=== PATIENT | female | born 1950 | race Two or more races ===

== ENCOUNTER 2018-05-19 11:42 | Outpatient (CLI) | payer OTHER ==
[~2018-05-19 11:42] MED LIST: CONEX TABLET1 EACH PO; IOPHEN DM-100 MG/5 M PO; TESSALON PERLE100 M1 PO
== END 2018-05-19 17:00 | disposition home or self-care (01) ==
LOC: SONOGRAMA 11:42 → RAD 11:42
DX: M25.562 Pain in left knee (principal)

== ENCOUNTER 2018-05-20 07:23 | Outpatient (CLI) | payer OTHER | END 2018-05-20 07:32 | disposition home or self-care (01) | LOC: SONOGRAMA 07:23 | DX: M25.562 Pain in left knee (principal) ==

== ENCOUNTER → 2018-06-02 | Outpatient (CLI) | payer OTHER | END | disposition home or self-care (01) | LOC: MRI 07:15 | DX: M25.462 Effusion, left knee (principal); M25.562 Pain in left knee | CPT/HCPCS: 73721 ==

== ENCOUNTER 2018-06-09 15:16 | Outpatient (CLI) | payer OTHER | END 2018-06-09 16:24 | disposition home or self-care (01) | LOC: LAB 15:16 | DX: E55.9 Vitamin D deficiency, unspecified (principal); M85.89 Other specified disorders of bone density and structure, multiple sites ==

== ENCOUNTER → 2018-06-22 | Outpatient (CLI) | payer OTHER | END | disposition home or self-care (01) | LOC: NUCLEAR 07:20 | DX: M81.0 Age-related osteoporosis without current pathological fracture (principal) ==

== ENCOUNTER 2018-10-27 08:38 | Outpatient (CLI) | payer OTHER | END 2018-10-27 15:00 | disposition home or self-care (01) | LOC: LAB 08:38 | DX: E88.89 Other specified metabolic disorders (principal); M81.8 Other osteoporosis without current pathological fracture; E56.1 Deficiency of vitamin K; E21.3 Hyperparathyroidism, unspecified ==

== ENCOUNTER 2018-10-27 08:43 | Outpatient (CLI) | payer OTHER | END 2018-10-27 16:26 | disposition home or self-care (01) | LOC: LAB 08:43 | DX: Z11.1 Encounter for screening for respiratory tuberculosis (principal) ==

== ENCOUNTER 2019-10-25 15:14 | Outpatient (CLI) | payer OTHER | END 2019-10-25 15:47 | disposition home or self-care (01) | LOC: CERTIFICAD 15:14 → LAB 15:14 | DX: Z11.1 Encounter for screening for respiratory tuberculosis (principal) ==

== ENCOUNTER 2019-12-02 16:06 | Outpatient (CLI) | payer OTHER | END 2019-12-02 16:08 | disposition home or self-care (01) | LOC: PPH VACUNA 16:06 | DX: Z23 Encounter for immunization (principal) ==

== ENCOUNTER 2020-12-10 08:00 | Outpatient (CLI) | payer OTHER | END 2020-12-10 08:30 | disposition home or self-care (01) | LOC: PPH VACUNA 08:00 | PROVIDERS: ATTEND Emergency Medicine Pediatric Emergency Medicine | DX: Z23 Encounter for immunization (principal) ==

== ENCOUNTER 2021-12-04 08:00 | Outpatient (CLI) | payer OTHER | END 2021-12-04 08:05 | disposition home or self-care (01) | LOC: PPH VACUNA 08:00 | PROVIDERS: ATTEND Emergency Medicine Pediatric Emergency Medicine | DX: Z23 Encounter for immunization (principal) ==